=== PATIENT | female | born 1970 | race Caucasian/White ===

== ENCOUNTER 2018-10-03 19:10 | Emergency (ER) | payer MEDICAID ==
[2018-10-03 19:39] LABS: PLATELET COUNT 244 10^3/uL (150-400)
--- NOTE | 2018-10-03 19:40 | EDPHY ---
HPI/HX/ROS/PE/MDM Narrative: CHIEF COMPLAINT: Abdominal pain, vomiting, chills HPI: The patient is a 48 y/o female arriving with her friend complaining of sharp intermittent RLQ abdominal pain onset today. She describes pain that come and goes and intensity that fluctuates in intensity when present. She says, "there's like a sword cutting through my abdomen going through to my back and kidney." When present, her pain is worse with palpation. She had a period of chills and shivering earlier this afternoon and vomited 2 hours ago. She denies dysuria, polyuria, diarrhea, abnormal discharge. Her last menstrual period was 4 years ago. No history of abdominal surgeries. No pain at time of assessment. REVIEW OF SYSTEMS: A comprehensive 10 system review of systems is otherwise negative aside from elements mentioned in the history of present illness. PMH: Denies SOCIAL HISTORY: Friend at bedside. Unemployed. PHYSICAL EXAM: General:Patient is alert, in no acute distress. ENT:Eyes are normal to inspection. ENT inspection normal. Neck: Normal inspection. Full range of motion. Respiratory:No respiratory distress. Breath sounds normal bilaterally. Cardiovascular: Regular rate and rhythm. Strong peripheral pulses. Normal cap refill. Abdomen:The abdomen is nontender to palpation. There are no peritoneal signs. Back: Normal to inspection. No tenderness to palpation. Skin: Normal color. No rash. Warm and dry. Extremities: Normal appearance. Full range of motion. Neuro: Oriented x3. Normal motor function. Normal sensory function. ED Course: This is a 48 y/o female who presents with a 1-day history of intermittent RLQ and right flank pain. She has a benign abdomen and no CVA tenderness on exam. Presentation could indicate kidney stone vs. atypical appendicitis. The patient is highly reluctant to proceed with any testing as she is uninsured and concerned about the associated financial costs. She stated that she came her to rule out appendicitis, but does not want any testing with radiation. She agrees to UA and basic lab work. WBC elevated at 12.61. UA shows elevated RBCs and WBCs. Reassessed patient and discussed findings. Again recommended abdominal CT to rule out appendicitis or kidney stone, but she declined citing concerns about the radiation and cost. She did agree to a KUB instead. Abdominal x-ray shows constipation. Discussed findings with the patient and how these results cannot exclude appendicitis or kidney stone as the cause of her pain. However, she is declining any further investigation into the cause of her symptoms and would like to be discharged home. She states she understands the risks of not proceeding with further treatment tonight. I advised her to return for any worsening of condition or failure to improve. MDM: This patient presents with RLQ pain of unknown etiology. Workup in the ED was quite significantly limited by patient's desire to keep financial costs low as well as reluctance to undergo imaging. She tells me that she is here to rule out appendicitis or something else bad, but I explained to her in no uncertain terms that I cannot accomplish that goal without testing that she is currently unwilling to undergo. The patient understands that her labs are abnormal - she plans to follow-up with her own providers as an outpatient. Appendicitis, kidney stone, pyelonephritis, bladder cancer are among potential etiologies that have not been ruled out. I am concerned that the patient is not making the best decision but she certainly has decisional capacity and understands risks involved, so we will respect her decision. - Data Points Imaging Results: Imaging Impressions Abdomen X-Ray 10/03/18 20:25 Impression: No evidence for nephrolithiasis or right ureteral calculus. Possible left ureteral calculus versus vascular calcification. Moderate constipation in the right ascending colon. Imaging: I viewed and interpreted images myself Laboratory Results: Laboratory Results 10/03/18 19:27 10/03/18 19:27 10/03/18 10/03/18 10/03/18 19:40 19:35 19:27 WBC RBC Hgb POC Hgb 14.3 gm/dL gm/dL (12.6-16.3) Hct POC Hct 42 % % (38-47) MCV MCH MCHC RDW Plt Count MPV Neut % (Auto) Lymph % (Auto) [place] % (Auto) Eos % (Auto) Baso % (Auto) Nucleat RBC Rel Count Absolute Neuts (auto) Absolute Lymphs (auto) Absolute Monos (auto) Absolute Eos (auto) Absolute Basos (auto) Absolute Nucleated RBC Immature Gran % Immature Gran # POC Sodium 141 mEq/L mEq/L (135-145) Sodium 139 mEq/L mEq/L (135-145) POC Potassium 3.6 mEq/L mEq/L (3.3-5.0) Potassium 3.8 mEq/L mEq/L (3.3-5.0) POC Chloride 105 mEq/L mEq/L (97-110) Chloride 106 mEq/L mEq/L (97-110) Carbon Dioxide 24 mEq/l mEq/l (22-31) Anion Gap 9 mEq/L mEq/L (6-14) POC BUN 23 mg/dL mg/dL (7-23) BUN 22 mg/dL mg/dL (7-23) Creatinine 1.0 mg/dL mg/dL (0.6-1.0) POC Creatinine 1.1 mg/dL H mg/dL (0.6-1.0) Estimated GFR 59 Glucose 126 mg/dL H mg/dL (70-100) POC Glucose 127 mg/dL H mg/dL (70-100) Calcium 9.7 mg/dL mg/dL (8.5-10.4) Urine Color YELLOW Urine Appearance CLEAR Urine pH 6.0 (5.0-7.5) Ur Specific [place] 1.013 (1.002-1.030) Urine Protein NEGATIVE (NEGATIVE) Urine Ketones TRACE H (NEGATIVE) Urine Blood 3+ H (NEGATIVE) Urine Nitrate NEGATIVE (NEGATIVE) Urine Bilirubin NEGATIVE (NEGATIVE) Urine Urobilinogen NEGATIVE EU EU (0.2-1.0) Ur Leukocyte Esterase NEGATIVE (NEGATIVE) Urine RBC 25-50 /hpf H /hpf (0-3) Urine WBC 3-5 /hpf H /hpf (0-3) Ur Epithelial Cells NONE SEEN /lpf /lpf (NONE-1+) Hyaline Casts 1-5 /lpf /lpf (0-1) Urine Mucus TRACE /lpf /lpf (NONE-1+) Urine Glucose NEGATIVE (NEGATIVE) 10/03/18 19:27 WBC 12.61 10^3/uL H 10^3/uL (3.80-9.50) RBC 4.55 10^6/uL 10^6/uL (4.18-5.33) Hgb 14.0 g/dL g/dL (12.6-16.3) POC Hgb Hct 41.2 % % (38.0-47.0) POC Hct MCV 90.5 fL fL (81.5-99.8) MCH 30.8 pg pg (27.9-34.1) MCHC 34.0 g/dL g/dL (32.4-36.7) RDW 11.2 % L % (11.5-15.2) Plt Count 244 10^3/uL 10^3/uL (150-400) MPV 8.8 fL fL (8.7-11.7) Neut % (Auto) 89.7 % H % (39.3-74.2) Lymph % (Auto) 6.1 % L % (15.0-45.0) [place] % (Auto) 3.5 % L % (4.5-13.0) Eos % (Auto) 0.0 % L % (0.6-7.6) Baso % (Auto) 0.2 % L % (0.3-1.7) Nucleat RBC Rel Count 0.0 % % (0.0-0.2) Absolute Neuts (auto) 11.31 10^3/uL H 10^3/uL (1.70-6.50) Absolute Lymphs (auto) 0.77 10^3/uL L 10^3/uL (1.00-3.00) Absolute Monos (auto) 0.44 10^3/uL 10^3/uL (0.30-0.80) Absolute Eos (auto) 0.00 10^3/uL L 10^3/uL (0.03-0.40) Absolute Basos (auto) 0.03 10^3/uL 10^3/uL (0.02-0.10) Absolute Nucleated RBC 0.00 10^3/uL 10^3/uL (0-0.01) Immature Gran % 0.5 % % (0.0-1.1) Immature Gran # 0.06 10^3/uL 10^3/uL (0.00-0.10) POC Sodium Sodium POC Potassium Potassium POC Chloride Chloride Carbon Dioxide Anion Gap POC BUN BUN Creatinine POC Creatinine Estimated GFR Glucose POC Glucose Calcium Urine Color Urine Appearance Urine pH Ur Specific [place] Urine Protein Urine Ketones Urine Blood Urine Nitrate Urine Bilirubin Urine Urobilinogen Ur Leukocyte Esterase Urine RBC Urine WBC Ur Epithelial Cells Hyaline Casts Urine Mucus Urine Glucose Point of Care Test Results: Chemistry 10/03/18 19:35 POC Sodium 141 mEq/L mEq/L (135-145) POC Potassium 3.6 mEq/L mEq/L (3.3-5.0) POC Chloride 105 mEq/L mEq/L (97-110) POC BUN 23 mg/dL mg/dL (7-23) POC Creatinine 1.1 mg/dL H mg/dL (0.6-1.0) POC Glucose 127 mg/dL H mg/dL (70-100) ISTAT H&H 10/03/18 19:35 POC Hgb 14.3 gm/dL gm/dL (12.6-16.3) POC Hct 42 % % (38-47) General Time Seen by Provider: 10/03/18 19:20 Initial Vital Signs: Initial Vital Signs Temperature (C) 37 C 10/03/18 19:20 Heart Rate 82 10/03/18 19:20 Respiratory Rate 18 10/03/18 19:20 Blood Pressure 113/79 10/03/18 19:20 O2 Sat (%) 95 10/03/18 19:20 O2 Delivery Mode Room Air Allergies/Adverse Reactions: No Known Allergies Allergy (Unverified 10/03/18 19:20) Home Medications: Medication Instructions Recorded NK [No Known Home Meds] 10/03/18 Departure - Departure Disposition: Home, Routine, Self-Care Clinical Impression: Abdominal pain, Hematuria Condition: Good Instructions: Hematuria (ED), Abdominal Pain (ED) Additional Instructions: Without an abdominal CT, we are unable to rule out appendicitis or kidney stone as a cause for your symptoms tonight. Please return to the ED for any worsening of condition or failure to improve. You've also bee referred to a primary care provider to establish follow up care. Referrals: [facility],. [Clinic] - As per Instructions Report Scribed for: Maciej Denson Report Scribed by: Tanya Smith Date of Report: 10/03/18 Time of Report: 19:40 Physician Review and Approval Statement: Portions of this note were transcribed by an ED scribe. I personally performed the history, physical exam, and medical decision making; and confirm the accuracy of the information in the transcribed note.
[2018-10-03 21:15] VITALS: BP 118/72
== END 2018-10-03 21:39 | disposition home or self-care (01) ==
DX: R10.31 Right lower quadrant pain (principal); R31.9 Hematuria, unspecified
CPT/HCPCS: 82435-PO; 82565-PO; 82947-PO; 84132-PO; 84295-PO; 84520-PO; 85014-PO

== ENCOUNTER 2018-10-16 09:01 | Emergency (ER) | payer MEDICAID ==
[2018-10-16 09:04] VITALS: BP 112/74
--- NOTE | 2018-10-16 09:14 | EDPHY ---
H & P Stated Complaint: Anxiety/not sleepinig Time Seen by Provider: 10/16/18 09:05 HPI/ROS: HPI: This is a 48-year-old female who presents with Chief Complaint: Anxiety/not sleeping Location: psych Quality: anxiety/insomnia Duration: 2 days Signs and Symptoms: No homicidal ideation, no suicidal ideation, no paranoia, no auditory hallucinations, no visual hallucinations Timing: Acute Severity: Moderate to severe Context: Patient lost her job and march and has been dealing with depression anxiety since with PTSD from childhood events. She is being followed by the [facility] and started on Zoloft 2 days ago. She initially attempted meditation and holistic therapies for the last several months without improvement in her symptoms. She had no prior history of anxiety, depression, bipolar disorder any other psychiatric illness. She denies any alcohol or drug use. Friday she had 2 job interviews. Since that time she has been extremely anxious and worried about her financial and professional situation. She has tried taking trazodone given to her by the [facility] the last 2 days without any relief of her symptoms. She is not drinking any caffeine. She is extremely tearful and reports that she feels exhausted as she has not been able to sleep in the last 2 days. She went to the [facility] this morning but they had no appointments for today. She does have an appointment at 10:30 a.m. This afternoon with her counselor. Modifying Factors: See above Comment: ROS: A comprehensive 10 system review of systems is otherwise negative aside from elements mentioned in the history of present illness. MEDICAL/SURGICAL/SOCIAL HISTORY: Medical history: Adrenal deficiency Surgical history: Denies Social history: Denies alcohol, tobacco, drug use. Family history noncontributory. CONSTITUTIONAL: Tearful, calm and cooperative, middle-aged white female, awake and alert, no obvious distress HEENT: Atraumatic and normocephalic, PERRL, EOMI. Nares patent; no rhinorrhea; no nasal mucosal edema. Tympanic membranes clear. Oropharynx clear, no exudate and moist pink mucosa. Airway patent. No lymphadenopathy. No meningismus. Cardiovascular: Normal S1/S2, regular rate, regular rhythm, without murmur rub or gallop. PULMONARY/CHEST: Symmetrical and nontender. Clear to auscultation bilaterally. Good air movement. No accessory muscle usage. ABDOMEN: Soft, nondistended, nontender, no rebound, no guarding, no peritoneal signs, no masses or organomegaly. No CVAT. EXTREMITIES: 2/2 pulses, strength 5/5, no deformities, no clubbing, no cyanosis or edema. NEUROLOGICAL: no focal neuro deficits. GCS 15. SKIN: Warm and dry, no erythema. no rash. Good capillary refill. PSYCH: Good eye contact, no flight of ideas, organized thought process, good insight and judgment, no auditory hallucinations, no visual hallucinations, no suicidal ideation with a plan, no homicidal ideation, no paranoia Source: Patient Exam Limitations: No limitations - Medical/Surgical History Hx Asthma: No Hx Chronic Respiratory Disease: No Hx Diabetes: No Hx Cardiac Disease: No Hx Renal Disease: No Hx Cirrhosis: No Hx Alcoholism: No Hx HIV/AIDS: No Hx Splenectomy or Spleen Trauma: No Other PMH: Addrenal Burnout - Social History Smoking Status: Never smoked Constitutional: Initial Vital Signs Temperature (C) 36.6 C 10/16/18 09:02 Heart Rate 84 10/16/18 09:02 Respiratory Rate 18 10/16/18 09:02 Blood Pressure 112/74 10/16/18 09:02 O2 Sat (%) 95 10/16/18 09:02 O2 Delivery Mode Room Air Allergies/Adverse Reactions: No Known Allergies Allergy (Unverified 10/16/18 09:02) Home Medications: Medication Instructions Recorded Triazolam [Halcion 0.25MG (*)] 0.25 mg PO HS PRN #6 tab 10/16/18 Medical Decision Making ED Course/Re-evaluation: Vital signs reviewed and stable upon arrival. Patient does not meet M1 hold or MIH criteria. Patient instructed to continue to take Zoloft and stop taking Trazodone and given a prescription for 6 tablets of Halcion. Patient is currently being followed by [facility]. She has an appointment this afternoon with Psychiatry and will follow up with [facility] early next week. This patient was seen under the supervision of my secondary supervising physician. I evaluated care for this patient independently. Differential Diagnosis: Differential diagnosis includes but is not limited to major depression, anxiety disorder, schizophrenia, bipolar disorder, intoxicant use, suicidal ideation, psychosis, blanca. Departure - Departure Disposition: Home, Routine, Self-Care Clinical Impression: Insomnia secondary to depression with anxiety Condition: Good Instructions: Insomnia (ED) Additional Instructions: Please continue to take Zoloft as prescribed. Follow-up at the [facility] early next week. Take Halcion 1-2 tablets at bedtime as needed for insomnia. Do not take trazodone and Halcion at the same time. Drink [id number] herbal teas intake melatonin as needed for insomnia. Practice good sleep habits. Call 911 if you have thoughts of hurting or killing yourself or anyone else, or have any new or worsening symptoms that concern you. Referrals: Rebecca Palmer PA [Primary Care Provider] - As per Instructions Prescriptions: Triazolam [Halcion 0.25MG (*)] 0.25 mg PO HS PRN #6 tab PRN Reason: Sleep/Insomnia
== END 2018-10-16 09:20 | disposition home or self-care (01) ==
DX: F51.05 Insomnia due to other mental disorder (principal)